=== PATIENT | female | born 1985 | race Hispanic/Latino ===

== ENCOUNTER 2017-10-30 10:14 | Emergency (ER) | payer MEDICAID ==
[2017-10-30] MEDS ORDERED: FLEXERIL PO ONE (11:48)
[2017-10-30] MEDS ORDERED: RABAVERT RABIES VACCINE(PCEC) IM ONE (11:49)
[2017-10-30] MEDS ORDERED: TORADOL IM ONE (11:49)
[2017-10-30] MEDS ORDERED: TORADOL ONE (11:50)
--- NOTE | 2017-10-30 11:50 | Emergency Department Report ---
ED Animal Bite HPI - General Chief Complaint: Animal Bite Stated Complaint: DOG BITE SUNDAY Time Seen by Provider: 10/30/17 11:29 Source: patient Mode of arrival: Ambulatory Limitations: No Limitations - History of Present Illness Initial Comments: Pt is a 32-year-old female presents to ED status dog bite 3 days ago. Patient states she was bitten by a neighbors dog. Patient states the dog bit her on her right lower leg. Patient states that she also fell against gate as she was shown to get away back against gait on the side of the house she was strongly get the dog away from her. Patient states she did not sustain any falls, trauma to the head, neck injury. Patient states she is unsure of the dog was vaccinated because she was not shown vaccination paperwork by her neighbors. She states that dog is a house pet. It has been for the past 11 months. She denies fevers/chills/nausea vomiting abdominal pain or chest pain shortness of breath MD Complaint: animal bite Right: Leg Animal: dog Animal Control Notified: No Description: household pet, immunizations unknown Mechanism: bite Pain Description: dull Severity scale (0 -10): 5 Context: animals fighting Treatments Prior to Arrival: irrigation - Related Data Patient Tetanus UTD: Yes Previous Rx's Medication Instructions Recorded Last Taken Type HYDROcodone/APAP 5-325 [Benton 1 each PO Q6HR PRN #12 tablet 01/14/16 Unknown Rx 5/325] Amoxicillin/Potassium Clav 1 each PO BID #20 tablet 10/30/17 Unknown Rx [Augmentin 875-125 Tablet] Cyclobenzaprine [Flexeril] 10 mg PO QHS PRN #20 tablet 10/30/17 Unknown Rx Naproxen [Naprosyn] 500 mg PO BID #30 tablet 10/30/17 Unknown Rx Allergies Allergy/AdvReac Type Severity Reaction Status Date / Time No Known Allergies Allergy Verified 01/13/16 19:46 ED Review of Systems ROS: Stated complaint: DOG BITE SUNDAY Other details as noted in HPI Constitutional: denies: chills, fever Eyes: denies: eye pain, eye discharge, vision change ENT: denies: ear pain, throat pain Respiratory: denies: cough, shortness of breath, wheezing Cardiovascular: denies: chest pain, palpitations Endocrine: no symptoms reported Gastrointestinal: denies: abdominal pain, nausea, diarrhea Genitourinary: denies: urgency, dysuria, discharge Musculoskeletal: denies: back pain, joint swelling, arthralgia Skin: denies: rash, lesions Neurological: denies: headache, weakness, paresthesias Psychiatric: denies: anxiety, depression Hematological/Lymphatic: denies: easy bleeding, easy bruising ED Past Medical Hx - Past Medical History Hx Psychiatric Treatment: Yes (ANXIETY, depression) - Surgical History Past Surgical History?: No - Social History Smoking Status: Never Smoker Substance Use Type: None - Medications Home Medications: Home Medications Medication Instructions Recorded Confirmed Last Taken Type HYDROcodone/APAP 5-325 [Benton 1 each PO Q6HR PRN #12 tablet 01/14/16 Unknown Rx 5/325] Amoxicillin/Potassium Clav 1 each PO BID #20 tablet 10/30/17 Unknown Rx [Augmentin 875-125 Tablet] Cyclobenzaprine [Flexeril] 10 mg PO QHS PRN #20 tablet 10/30/17 Unknown Rx Naproxen [Naprosyn] 500 mg PO BID #30 tablet 10/30/17 Unknown Rx ED Physical Exam - General Limitations: No Limitations General appearance: alert, in no apparent distress - Head Head exam: Present: atraumatic, normocephalic - Eye Eye exam: Present: normal appearance - ENT ENT exam: Present: mucous membranes moist - Neck Neck exam: Present: normal inspection - Respiratory Respiratory exam: Present: normal lung sounds bilaterally. Absent: respiratory distress - Cardiovascular Cardiovascular Exam: Present: regular rate, normal rhythm. Absent: systolic murmur, diastolic murmur, rubs, gallop - GI/Abdominal GI/Abdominal exam: Present: soft, normal bowel sounds - Extremities Exam Extremities exam: Present: normal inspection, full ROM - Expanded Lower Extremity Exam Right Hip exam: Present: normal inspection, full ROM. Absent: tenderness, swelling Upper Leg exam: Present: normal inspection, full ROM. Absent: tenderness, swelling Knee exam: Present: normal inspection, full ROM. Absent: tenderness, swelling, abrasion Lower Leg exam: Present: full ROM, tenderness (at surrounded abrasions), abrasion (animal bite wounds, healed, non bleeding.) Ankle exam: Present: normal inspection, full ROM. Absent: tenderness, swelling , abrasion Foot/Toe exam: Present: normal inspection, full ROM. Absent: tenderness, swelling - Back Exam Back exam: Present: normal inspection, full ROM - Neurological Exam Neurological exam: Present: alert, oriented X3 - Psychiatric Psychiatric exam: Present: normal affect, normal mood - Skin Skin exam: Present: warm, dry, intact, normal color, ecchymosis (on left lateral buttock,). Absent: rash ED Course Vital Signs 10/30/17 10/30/17 10:20 13:00 Temperature 98 F 98.6 F Pulse Rate 68 64 Respiratory 16 16 Rate Blood Pressure 112/70 Blood Pressure 131/80 [Right] O2 Sat by Pulse 98 100 Oximetry Critical care attestation.: If time is entered above; I have spent that time in minutes in the direct care of this critically ill patient, excluding procedure time. ED Disposition Clinical Impression: Dog bite of extremity, Abrasion, Myalgia Disposition: TO HOME OR SELFCARE Is pt being admited?: No Does the pt Need Aspirin: No Condition: Stable Instructions: Animal Bite (ED), Acute Wound Care (ED), Abrasion (ED), Musculoskeletal Pain (ED) Additional Instructions: Make sure to follow up with the primary care physician as discussed. Take all your medications as you've been prescribed. Return on day 3 for a second vaccination and the rest following instructions If you have any worsening symptoms or develop new symptoms please return to ED immediately. Prescriptions: Cyclobenzaprine [Flexeril] 10 mg PO QHS PRN #20 tablet PRN Reason: Muscle Spasm Amoxicillin/Potassium Clav [Augmentin 875-125 Tablet] 1 each PO BID #20 tablet Naproxen [Naprosyn] 500 mg PO BID #30 tablet Referrals: VICKY SANDOVAL MD [Primary Care Provider] - 3-5 Days Forms: Accompanied Note, Work/School Release Form(ED) Time of Disposition: 12:31 Medical Decision Making - [facility] 32-year-old female presents with dog bite ED course: Patient received rabies vaccine and Toradol and Flexeril for pain. Dog bite abrasion cleaned. Well-healing, no pus discharge, nonbleeding, closed puncture bite wounds Discussed with patient. Keep wound open and mildly covered while working outside discussed otherwise keep wound dry Discussed to use Neosporin ointment as needed. I discussed the patient since to dog was in a house that most likely has been vaccinated but since she i he is insistent on getting the vaccination. Rabies vaccination started, patient sent him on Augmentin and pain meds Discussed patient will need antibiotic sensitivity the next 7 days. Discussed to return day 3, day 7 and 14 for the risks of the vaccination. Vital signs are stable she is in no acute distress She understands her instructions given.
[2017-10-30 13:20] VITALS: BP 131/80
--- NOTE | 2017-10-30 14:08 | XRay Report ---
RIGHT TIBIA/FIBULA: History: Pain, puncture wound, dogbite AP and lateral views of the right tibia/fibula demonstrate normal mineralization and contours for this patient's age. No destructive changes are noted and the adjacent soft tissues are normal. IMPRESSION: Unremarkable right tibia/fibula.
== END 2017-10-30 13:00 | disposition home or self-care (01) ==
LOC: ED 10:14
DX: S80.811A Abrasion, right lower leg, initial encounter (principal); F41.9 Anxiety disorder, unspecified; F32.9 Major depressive disorder, single episode, unspecified; W54.0XXA Bitten by dog, initial encounter; Y93.89 Activity, other specified; Y92.89 Other specified places as the place of occurrence of the external cause; Y99.8 Other external cause status
CPT/HCPCS: 73590; 90471; 90675; 96372; 99283; J1885